=== PATIENT | female | born 1980 | race Caucasian/White ===

== ENCOUNTER 2019-02-15 22:35 | Emergency (ER) | payer OTHER, SELFPAY ==
[~2019-02-15] VITALS: Ht 165.1 cm; Wt 71.6 kg
[2019-02-15 22:38] VITALS: BP 128/80
== END 2019-02-15 23:55 | disposition home or self-care (01) ==
LOC: ED 23:48
DX: L01.01 Non-bullous impetigo (principal); J01.10 Acute frontal sinusitis, unspecified; J01.00 Acute maxillary sinusitis, unspecified
CPT/HCPCS: 99283